=== PATIENT | female | born 1980 | race Two or more races ===

== ENCOUNTER 2019-12-04 05:22 | Day surgery (SDC) | payer OTHER ==
[~2019-12-04 05:22] MED LIST: CRESTOR20 MG PO; LODINE300 MG PO; LORAZEPAM0.5 MG PO; NIFEDIPINE ER60 M1 PO; PLAVIX75 MG PO; PROTONIX40 MG PO; ZESTRIL40 M1 PO
[2019-12-04] MEDS ORDERED: ULTRACET PO (09:58)
[2019-12-04] MEDS ORDERED: NEURONTIN600 M1 PO (10:05)
[2019-12-04] MEDS ORDERED: POLY119PG PO (10:06)
== END 2019-12-04 14:35 | disposition home or self-care (01) ==
LOC: CIR.AMB 05:22
DX: K43.0 Incisional hernia with obstruction, without gangrene (principal)